=== PATIENT | female | born 1995 | race African-American/Black ===

== ENCOUNTER 2016-05-02 11:53 | Emergency (ER) | payer MEDICAID ==
[~2016-05-02] VITALS: Ht 160 cm; Wt 72.0 kg
[2016-05-02 11:55] VITALS: BP 161/94; PULSE 94; RESP 22; TEMP 97.6; O2SAT 95
[2016-05-02 12:17] VITALS: BP 143/93; PULSE 92; RESP 22; O2SAT 98
--- NOTE | 2016-05-02 12:37 | PD ---
HPI Chief Complaint: Abdominal Pain Time Seen by Provider: 12:34 Travel History International Travel<30 days: No Contact w/Intl Traveler<30days: No Traveled to known affect area: No History of Present Illness HPI Patient is a 20-year-old female who presents to the emergency for evaluation of nausea, vomiting, cough and shortness of breath. Patient states that symptoms started 3 days ago. She reports pleuritic chest pain with coughing, she reports her cough is productive. She denies any fever, diarrhea, sick contacts or contaminated foods. Patient is currently on her menstrual cycle. She further denies any dysuria. Patient reports abdominal pain in his epigastric and cramping in nature. She states her pain is a 10 out of 10. PFS Past Medical History Medical History: Denies Significant Hx ?: Not LMP: 04/2016 Past Surgical History Surgical History: No Previous Surgery Social History Alcohol Use: Yes (occasional) Tobacco Use: Yes (occasional) Substance Use: No Allergies-Medications (Allergen,Severity, Reaction): Coded Allergies: No Known Allergies (Unverified , 05/02/16) Reported Meds & Prescriptions Reported Meds & Active Scripts Active Zofran Odt (Ondansetron Odt) 4 Mg Tab 4 Mg SL Q6HR PRN Review of Systems Except as stated in HPI: all other systems reviewed are Neg General / Constitutional: No: Fever, Chills HENT: No: Headaches Cardiovascular: No: Chest Pain or Discomfort Respiratory: Positive: Cough, Shortness of Breath, Pleuritic Pain, No: Wheezing Gastrointestinal: Positive: Nausea, Vomiting, Abdominal Pain, Loss of Appetite Genitourinary: No: Dysuria Musculoskeletal: No: Myalgias Neurologic: No: Weakness, Dizziness, Syncope, Focal Abnormalities Physical Exam Narrative GENERAL: Well-developed, well-nourished, alert female. Actively dry heaving. SKIN: Warm and dry. HEAD: Atraumatic. Normocephalic. EYES: Pupils equal and round. No scleral icterus. No injection or drainage. ENT: No nasal bleeding or discharge. Mucous membranes pink and moist. NECK: Trachea midline. No JVD. CARDIOVASCULAR: Regular rate and rhythm. No murmur appreciated. RESPIRATORY: No accessory muscle use. Clear to auscultation. Diminished in bases GASTROINTESTINAL: Abdomen soft, tender to palpation epigastric region, no rebound, no guarding, nondistended. Hepatic and splenic margins not palpable. Positive bowel sounds. MUSCULOSKELETAL: No obvious deformities. No clubbing. No cyanosis. No edema. NEUROLOGICAL: Awake and alert. No obvious cranial nerve deficits. Motor grossly within normal limits. Normal speech. PSYCHIATRIC: Appropriate mood and affect; insight and judgment normal. Data Data Last Documented VS Vital Signs Date Time Temp Pulse Resp B/P Pulse Ox O2 Delivery O2 Flow Rate FiO2 05/02/16 15:41 77 130/85 100 Room Air 05/02/16 13:57 16 05/02/16 11:55 97.6 Orders Complete Blood Count With Diff (05/02/16 12:31) Comprehensive Metabolic Panel (05/02/16 12:31) Lipase (05/02/16 12:31) Lactic Acid (05/02/16 12:31) Urinalysis - C+S If Indicated (05/02/16 12:31) Abdomen, Kub Only (05/02/16 12:31) Chest, Single Ap (05/02/16 12:31) Ondansetron Inj (Zofran Inj) (05/02/16 12:45) Influenzae A/B Antigen (05/02/16 12:32) Magnesium (Mg) (05/02/16 13:13) Iv Access Insert/Monitor (05/02/16 13:50) Sodium Chlor 0.9% 1000 Ml Inj (Ns 1000 M (05/02/16 14:00) Prochlorperazine Inj (Compazine Inj) (05/02/16 14:00) Diphenhydramine Inj (Benadryl Inj) (05/02/16 14:00) Ed Urine Pregnancytest Poc (05/02/16 14:16) Ondansetron Inj (Zofran Inj) (05/02/16 15:45) Labs Laboratory Tests Test 05/02/16 05/02/16 13:13 13:24 White Blood Count 9.1 TH/MM3 Red Blood Count 4.77 MIL/MM3 Hemoglobin 13.2 GM/DL Hematocrit 38.9 % Mean Corpuscular Volume 81.7 FL Mean Corpuscular Hemoglobin 27.6 PG Mean Corpuscular Hemoglobin 33.8 % Concent Red Cell Distribution Width 13.2 % Platelet Count 338 TH/MM3 Mean Platelet Volume 7.5 FL Neutrophils (%) (Auto) 81.7 % Lymphocytes (%) (Auto) 10.7 % Monocytes (%) (Auto) 6.9 % Eosinophils (%) (Auto) 0.4 % Basophils (%) (Auto) 0.3 % Neutrophils # (Auto) 7.5 TH/MM3 Lymphocytes # (Auto) 1.0 TH/MM3 Monocytes # (Auto) 0.6 TH/MM3 Eosinophils # (Auto) 0.0 TH/MM3 Basophils # (Auto) 0.0 TH/MM3 CBC Comment DIFF FINAL Differential Comment Sodium Level 136 MEQ/L Potassium Level 4.1 MEQ/L Chloride Level 101 MEQ/L Carbon Dioxide Level 23.8 MEQ/L Anion Gap 11 MEQ/L Blood Urea Nitrogen 9 MG/DL Creatinine 0.86 MG/DL Estimat Glomerular Filtration 84 ML/MIN Rate Random Glucose 86 MG/DL Lactic Acid Level 1.0 mmol/L Calcium Level 8.7 MG/DL Magnesium Level 2.1 MG/DL Total Bilirubin 1.4 MG/DL Aspartate Amino Transf 23 U/L (AST/SGOT) Alanine Aminotransferase 23 U/L (ALT/SGPT) Alkaline Phosphatase 68 U/L Total Protein 7.3 GM/DL Albumin 4.3 GM/DL Lipase 203 U/L Urine Color YELLOW Urine Turbidity HAZY Urine pH 6.0 Urine Specific [place] 1.026 Urine Protein 30 mg/dL Urine Glucose (UA) NEG mg/dL Urine Ketones 150 mg/dL Urine Occult Blood LARGE Urine Nitrite NEG Urine Bilirubin NEG Urine Urobilinogen LESS THAN 2.0 MG/DL Urine Leukocyte Esterase TRACE Urine RBC 148 /hpf Urine WBC 5 /hpf Urine Squamous Epithelial 6 /hpf Cells Urine Transitional Epithelial <1 /hpf Cells Urine Mucus MOD /lpf Microscopic Urinalysis Comment CULT NOT INDICATED MDM Medical Decision Making Medical Screen Exam Complete: Yes Emergency Medical Condition: Yes Interpretation(s) Vital Signs Date Time Temp Pulse Resp B/P Pulse Ox O2 Delivery O2 Flow Rate FiO2 05/02/16 12:17 92 22 143/93 98 Room Air 05/02/16 11:55 97.6 94 22 161/94 95 Differential Diagnosis Gastroenteritis versus influenza versus pneumonia versus gastritis versus obstruction versus other Narrative Course Patient is a 20-year-old female presenting to the emergency department for evaluation of GI symptoms as well as a cough with shortness of breath. Labs and imaging ordered and pending. Workup initiated triage, care of patient will be transferred to a provider when a medical bed is available. Zofran IM ordered. Scripts Ondansetron Odt (Zofran Odt)4 Mg Tab4 Mg SL Q6HR PRN (Nausea/Vomiting) #15 TAB Ref 0 Prov:Pao Galvan 05/02/16 Guerita Chen May 02, 2016 12:37
[2016-05-02] MEDS ORDERED: ONDANSETRON HCL 4 MG/2 ML VIAL IM ONE (12:45)
--- NOTE | 2016-05-02 13:10 | RADRPT ---
EXAM DATE/TIME: 05/02/2016 12:59 [facility] COMPARISON: No previous studies available for comparison. INDICATIONS : Upper abdominal pain, nausea for 2 days MEDICAL HISTORY : None. SURGICAL HISTORY : None. ENCOUNTER: Initial ACUITY: 2 days PAIN SCORE: 10/10 LOCATION: Bilateral abdomen FINDINGS: Supine view of the abdomen was performed. The abdominal bowel gas pattern is normal. The osseous st ructures are unremarkable. Phleboliths are seen in the pelvis. CONCLUSION: No acute disease. Justin Ochoa MD on May 02, 2016 at 13:08 Board Certified Radiologist. This report was verified electronically.
--- NOTE | 2016-05-02 13:10 | RADRPT ---
EXAM DATE/TIME: 05/02/2016 12:57 [facility] COMPARISON: No previous studies available for comparison. INDICATIONS : Pain in middle of chest for 2 days, nausea, weakness MEDICAL HISTORY : None. SURGICAL HISTORY : None. ENCOUNTER: Initial ACUITY: 2 days PAIN SCORE: 10/10 LOCATION: Bilateral chest FINDINGS: A single view of the chest demonstrates the lungs to be symmetrically aerated without evidence of mas s, infiltrate or effusion. The cardiomediastinal contours are unremarkable. Osseous structures are intact. CONCLUSION: No acute disease. Justin Ochoa MD on May 02, 2016 at 13:08 Board Certified Radiologist. This report was verified electronically.
[2016-05-02 13:47] LABS: AUTOMATED NEUTROPHIL # 7.5 TH/MM3 (1.8-7.7); BASOPHIL % 0.3 % (0.0-2.0); EOSINOPHIL % 0.4 % (0.0-4.0); HEMATOCRIT 38.9 % (35.0-46.0); HEMO FLAGS DIFF FINAL; LYMPH % 10.7 % (9.0-44.0); MEAN CELL VOLUME 81.7 FL (80.0-100.0); MEAN CORPUSCULAR HEMOGLOBIN 27.6 PG (27.0-34.0); MEAN CORPUSCULAR HGB CONC 33.8 % (32.0-36.0); MONO % 6.9 % (0.0-8.0); NEUT % 81.7 % (16.0-70.0); PLATELET COUNT 338 TH/MM3 (150-450); RED BLOOD COUNT 4.77 MIL/MM3 (4.00-5.30); RED CELL DISTRIBUTION WIDTH 13.2 % (11.6-17.2); WHITE BLOOD COUNT 9.1 TH/MM3 (4.0-11.0)
[2016-05-02 13:52] LABS: BLOOD, URINE LARGE (NEG); GLUCOSE,URINE NEG (NEG); KETONE, URINE 150 mg/dL (NEG); MUCUS URINE MOD /lpf (OCC); NITRITE,URINE NEG (NEG); SQUAMOUS EPITHELIAL CELL URINE 6 /hpf (0-5); TRANSITIONAL EPI CELLS, URINE <1 /hpf; URINE COLOR YELLOW (YELLW/STRAW)
[2016-05-02 13:57] VITALS: BP 133/89; PULSE 68; RESP 16; O2SAT 100
[2016-05-02 13:57] LABS: COMMENT (UR) CULT NOT INDICATED; CULTURE IF INDICATED CULT NOT INDICATED
[2016-05-02] MEDS ORDERED: SODIUM CHLOR 0.9% 1000 ML INJ 1,000 ML IV ONE (14:00)
[2016-05-02] MEDS ORDERED: PROCHLORPERAZINE INJ 10 MG/2 ML VIAL IVS ONE (14:00)
[2016-05-02] MEDS ORDERED: diphenhydrAMINE HCL 50 MG/ML VIAL IV PUSH ONE (14:00)
[2016-05-02 14:04] LABS: ANION GAP 11 MEQ/L (5-15); AST (GOT) 23 U/L (16-38); BICARBONATE 23.8 MEQ/L (21.0-32.0); BLOOD UREA NITROGEN 9 MG/DL (7-18); CHLORIDE 101 MEQ/L (98-107); GLOMERULAR FILTRATION RATE 84 ML/MIN (>89); MAGNESIUM 2.1 MG/DL (1.5-2.5); POTASSIUM 4.1 MEQ/L (3.5-5.1); SODIUM (NA) 136 MEQ/L (136-145)
[2016-05-02 14:07] LABS: ALKALINE PHOSPHATASE 68 U/L (45-117); ALT (GPT) 23 U/L (9-42); TOTAL BILIRUBIN ADULT 1.4 MG/DL (0.2-1.0)
--- NOTE | 2016-05-02 15:09 | PD ---
Data Data Last Documented VS Vital Signs Date Time Temp Pulse Resp B/P Pulse Ox O2 Delivery O2 Flow Rate FiO2 05/02/16 13:57 68 16 133/89 100 Room Air 05/02/16 11:55 97.6 Orders Complete Blood Count With Diff (05/02/16 12:31) Comprehensive Metabolic Panel (05/02/16 12:31) Lipase (05/02/16 12:31) Lactic Acid (05/02/16 12:31) Urinalysis - C+S If Indicated (05/02/16 12:31) Abdomen, Kub Only (05/02/16 12:31) Chest, Single Ap (05/02/16 12:31) Ondansetron Inj (Zofran Inj) (05/02/16 12:45) Influenzae A/B Antigen (05/02/16 12:32) Magnesium (Mg) (05/02/16 13:13) Iv Access Insert/Monitor (05/02/16 13:50) Sodium Chlor 0.9% 1000 Ml Inj (Ns 1000 M (05/02/16 14:00) Prochlorperazine Inj (Compazine Inj) (05/02/16 14:00) Diphenhydramine Inj (Benadryl Inj) (05/02/16 14:00) Ed Urine Pregnancytest Poc (05/02/16 14:16) Labs Laboratory Tests Test 05/02/16 05/02/16 13:13 13:24 White Blood Count 9.1 TH/MM3 Red Blood Count 4.77 MIL/MM3 Hemoglobin 13.2 GM/DL Hematocrit 38.9 % Mean Corpuscular Volume 81.7 FL Mean Corpuscular Hemoglobin 27.6 PG Mean Corpuscular Hemoglobin 33.8 % Concent Red Cell Distribution Width 13.2 % Platelet Count 338 TH/MM3 Mean Platelet Volume 7.5 FL Neutrophils (%) (Auto) 81.7 % Lymphocytes (%) (Auto) 10.7 % Monocytes (%) (Auto) 6.9 % Eosinophils (%) (Auto) 0.4 % Basophils (%) (Auto) 0.3 % Neutrophils # (Auto) 7.5 TH/MM3 Lymphocytes # (Auto) 1.0 TH/MM3 Monocytes # (Auto) 0.6 TH/MM3 Eosinophils # (Auto) 0.0 TH/MM3 Basophils # (Auto) 0.0 TH/MM3 CBC Comment DIFF FINAL Differential Comment Sodium Level 136 MEQ/L Potassium Level 4.1 MEQ/L Chloride Level 101 MEQ/L Carbon Dioxide Level 23.8 MEQ/L Anion Gap 11 MEQ/L Blood Urea Nitrogen 9 MG/DL Creatinine 0.86 MG/DL Estimat Glomerular Filtration 84 ML/MIN Rate Random Glucose 86 MG/DL Lactic Acid Level 1.0 mmol/L Calcium Level 8.7 MG/DL Magnesium Level 2.1 MG/DL Total Bilirubin 1.4 MG/DL Aspartate Amino Transf 23 U/L (AST/SGOT) Alanine Aminotransferase 23 U/L (ALT/SGPT) Alkaline Phosphatase 68 U/L Total Protein 7.3 GM/DL Albumin 4.3 GM/DL Lipase 203 U/L Urine Color YELLOW Urine Turbidity HAZY Urine pH 6.0 Urine Specific [place] 1.026 Urine Protein 30 mg/dL Urine Glucose (UA) NEG mg/dL Urine Ketones 150 mg/dL Urine Occult Blood LARGE Urine Nitrite NEG Urine Bilirubin NEG Urine Urobilinogen LESS THAN 2.0 MG/DL Urine Leukocyte Esterase TRACE Urine RBC 148 /hpf Urine WBC 5 /hpf Urine Squamous Epithelial 6 /hpf Cells Urine Transitional Epithelial <1 /hpf Cells Urine Mucus MOD /lpf Microscopic Urinalysis Comment CULT NOT INDICATED MDM Supervised Visit with STALIN: Yes Narrative Course I, Dr. Ashby, have reviewed the advance practice practioner's documentation and am in agreement, met with the patient face to face, made the diagnosis, and the medical decision making was done by me. *My assessment and Findings: 40-year-old healthy female here with complaint of nausea, vomiting and mild epigastric abdominal discomfort that started 3 days ago, worsened today. Patient has had fairly intractable nausea and vomiting since being out in our triage area. Incidentally she also notes a mild amount of sharp pain when she vomits in the chest. No fevers or chills, recent travel. No associated diarrhea. Abdominal examination is benign with minimal epigastric tenderness to palpation. Differential includes gastritis, pancreatitis, hepatobiliary pathology, food poisoning, dehydration, electrolyte abnormality, and less likely peritoneal pathology given benign abdominal examination. Laboratory workup was unremarkable patient felt markedly improved after symptomatic therapy was able to tolerate oral challenge and will be discharged home. Scripts No Active Prescriptions or Reported Meds Marisa Ashby MD May 02, 2016 15:09
[2016-05-02] MEDS ORDERED: ZOFR4TAB3 SL (15:10)
--- NOTE | 2016-05-02 15:10 | PD ---
Physical Exam Time Seen by Provider: 15:09 Narrative 20 year-old female presents to emergency department for evaluation of nausea, vomiting, epigastric pain worsening over last 3 days. Patient states she is unable to keep anything down. Workup was initiated in triage. Patient is with vomiting and dry heaving here in the emergency department. She has been vomiting since out in triage. She was given IM Zofran out there without any relief of her symptoms. Patient is currently on her menstrual cycle. Data Data Last Documented VS Vital Signs Date Time Temp Pulse Resp B/P Pulse Ox O2 Delivery O2 Flow Rate FiO2 05/02/16 15:41 77 130/85 100 Room Air 05/02/16 13:57 16 05/02/16 11:55 97.6 Orders Complete Blood Count With Diff (05/02/16 12:31) Comprehensive Metabolic Panel (05/02/16 12:31) Lipase (05/02/16 12:31) Lactic Acid (05/02/16 12:31) Urinalysis - C+S If Indicated (05/02/16 12:31) Abdomen, Kub Only (05/02/16 12:31) Chest, Single Ap (05/02/16 12:31) Ondansetron Inj (Zofran Inj) (05/02/16 12:45) Influenzae A/B Antigen (05/02/16 12:32) Magnesium (Mg) (05/02/16 13:13) Iv Access Insert/Monitor (05/02/16 13:50) Sodium Chlor 0.9% 1000 Ml Inj (Ns 1000 M (05/02/16 14:00) Prochlorperazine Inj (Compazine Inj) (05/02/16 14:00) Diphenhydramine Inj (Benadryl Inj) (05/02/16 14:00) Ed Urine Pregnancytest Poc (05/02/16 14:16) Ondansetron Inj (Zofran Inj) (05/02/16 15:45) Labs Laboratory Tests Test 05/02/16 05/02/16 13:13 13:24 White Blood Count 9.1 TH/MM3 Red Blood Count 4.77 MIL/MM3 Hemoglobin 13.2 GM/DL Hematocrit 38.9 % Mean Corpuscular Volume 81.7 FL Mean Corpuscular Hemoglobin 27.6 PG Mean Corpuscular Hemoglobin 33.8 % Concent Red Cell Distribution Width 13.2 % Platelet Count 338 TH/MM3 Mean Platelet Volume 7.5 FL Neutrophils (%) (Auto) 81.7 % Lymphocytes (%) (Auto) 10.7 % Monocytes (%) (Auto) 6.9 % Eosinophils (%) (Auto) 0.4 % Basophils (%) (Auto) 0.3 % Neutrophils # (Auto) 7.5 TH/MM3 Lymphocytes # (Auto) 1.0 TH/MM3 Monocytes # (Auto) 0.6 TH/MM3 Eosinophils # (Auto) 0.0 TH/MM3 Basophils # (Auto) 0.0 TH/MM3 CBC Comment DIFF FINAL Differential Comment Sodium Level 136 MEQ/L Potassium Level 4.1 MEQ/L Chloride Level 101 MEQ/L Carbon Dioxide Level 23.8 MEQ/L Anion Gap 11 MEQ/L Blood Urea Nitrogen 9 MG/DL Creatinine 0.86 MG/DL Estimat Glomerular Filtration 84 ML/MIN Rate Random Glucose 86 MG/DL Lactic Acid Level 1.0 mmol/L Calcium Level 8.7 MG/DL Magnesium Level 2.1 MG/DL Total Bilirubin 1.4 MG/DL Aspartate Amino Transf 23 U/L (AST/SGOT) Alanine Aminotransferase 23 U/L (ALT/SGPT) Alkaline Phosphatase 68 U/L Total Protein 7.3 GM/DL Albumin 4.3 GM/DL Lipase 203 U/L Urine Color YELLOW Urine Turbidity HAZY Urine pH 6.0 Urine Specific [place] 1.026 Urine Protein 30 mg/dL Urine Glucose (UA) NEG mg/dL Urine Ketones 150 mg/dL Urine Occult Blood LARGE Urine Nitrite NEG Urine Bilirubin NEG Urine Urobilinogen LESS THAN 2.0 MG/DL Urine Leukocyte Esterase TRACE Urine RBC 148 /hpf Urine WBC 5 /hpf Urine Squamous Epithelial 6 /hpf Cells Urine Transitional Epithelial <1 /hpf Cells Urine Mucus MOD /lpf Microscopic Urinalysis Comment CULT NOT INDICATED MDM Medical Record Reviewed: Yes Supervised Visit with STALIN: No Differential Diagnosis Gastritis versus food poisoning versus influenza versus pancreatitis versus cholecystitis Narrative Course 20 year-old female presents to the emergency department for evaluation of nausea , vomiting, epigastric pain. Patient does have mild tenderness to palpation in the epigastrium. She is dry heaving and vomiting here in the emergency department. There is no hematemesis noted. IV access is obtained. Patient is given Compazine and IV fluids. CBC and CMP are without acute concern. Urinalysis is hazy with 30 proteinuria, 150 ketones, large occult blood, trace leukocyte esterase, 48 RBC, moderate mucus, culture not indicated. Patient is on her menstrual cycle. Patient is next noted to be restful, lying in the bed. By mouth challenges initiated and patient tolerates by mouth fluids. I discussed the patient my attending physician Dr. Ashby is also assessed the patient. She'll be discharged home at this time. Diagnosis Primary Impression: Gastritis Qualified Code: K29.00 - Acute gastritis without hemorrhage, unspecified gastritis type Additional Impression: Nausea & vomiting Qualified Code: R11.2 - Intractable vomiting with nausea, unspecified vomiting type Referrals: Director Hospice Operations Primary Care Physician Patient Instructions: Diet for Stomach Ulcers and Gastritis (ED), General Instructions Departure Forms: Tests/Procedures, Work Release Enter return to work date: May 04, 2016 Additional Instruction: Avoid acidic abrasive foods Liquid diet, just as tolerated Follow-up the primary care provider Return immediately with any acute worsening of symptoms Med/Other Pt SpecificInfo: Prescription(s) given Scripts Ondansetron Odt (Zofran Odt)4 Mg Tab4 Mg SL Q6HR PRN (Nausea/Vomiting) #15 TAB Ref 0 Prov:Pao Galvan 05/02/16 Disposition: 01 DISCHARGE HOME Condition: Stable Pao Galvan May 02, 2016 15:10
[2016-05-02 15:41] VITALS: BP 130/85; PULSE 77; O2SAT 100
[2016-05-02] MEDS ORDERED: ONDANSETRON HCL 4 MG/2 ML VIAL IV PUSH ONE (15:45)
== END 2016-05-02 16:09 | disposition home or self-care (01) ==
LOC: NEPE 11:53
DX: K29.70 Gastritis, unspecified, without bleeding (principal); R11.2 Nausea with vomiting, unspecified
CPT/HCPCS: 71010; 74000; 80053; 81001; 83605; 83690; 83735; 84703; 85025; 87804; J0780; J1200; J2405; J7030; 96361; 96372; 96374; 96375

== ENCOUNTER 2016-06-10 07:22 | Emergency (ER) | payer SELFPAY ==
[~2016-06-10] VITALS: Ht 152.4 cm; Wt 72.5 kg
[~2016-06-10 07:22] MED LIST: ZOFR4TAB3 SL
[2016-06-10 07:24] VITALS: BP 130/84; PULSE 80; RESP 20; TEMP 97.9; O2SAT 100
[2016-06-10 08:15] LABS: AUTOMATED NEUTROPHIL # 8.1 TH/MM3 (1.8-7.7); BASOPHIL % 0.2 % (0.0-2.0); EOSINOPHIL % 0.3 % (0.0-4.0); HEMATOCRIT 42.3 % (35.0-46.0); HEMO FLAGS DIFF FINAL; LYMPH % 12.7 % (9.0-44.0); LYMPHOCYTE # 1.3 TH/MM3 (1.0-4.8); MEAN CELL VOLUME 81.6 FL (80.0-100.0); MEAN CORPUSCULAR HEMOGLOBIN 26.8 PG (27.0-34.0); MEAN CORPUSCULAR HGB CONC 32.9 % (32.0-36.0); NEUT % 80.8 % (16.0-70.0); PLATELET COUNT 324 TH/MM3 (150-450); RED BLOOD COUNT 5.18 MIL/MM3 (4.00-5.30); RED CELL DISTRIBUTION WIDTH 13.5 % (11.6-17.2)
[2016-06-10 08:34] LABS: ALT (GPT) 29 U/L (9-42); ANION GAP 12 MEQ/L (5-15); AST (GOT) 14 U/L (16-38); BICARBONATE 25.5 MEQ/L (21.0-32.0); BLOOD UREA NITROGEN 17 MG/DL (7-18); CHLORIDE 103 MEQ/L (98-107); GLOMERULAR FILTRATION RATE 86 ML/MIN (>89); POTASSIUM 3.6 MEQ/L (3.5-5.1); SODIUM (NA) 140 MEQ/L (136-145)
[2016-06-10 08:36] LABS: ALKALINE PHOSPHATASE 74 U/L (45-117); TOTAL BILIRUBIN ADULT 1.1 MG/DL (0.2-1.0)
[2016-06-10 08:36] LABS: BACTERIA, URINE OCC /hpf; BLOOD, URINE MOD (NEG); COMMENT (UR) CULT NOT INDICATED; CULTURE IF INDICATED CULT NOT INDICATED; GLUCOSE,URINE NEG (NEG); KETONE, URINE 150 mg/dL (NEG); MUCUS URINE MANY /lpf (OCC); NITRITE,URINE NEG (NEG); SQUAMOUS EPITHELIAL CELL URINE 2 /hpf (0-5); URINE COLOR YELLOW (YELLW/STRAW)
[2016-06-10] MEDS ORDERED: SODIUM CHLOR 0.9% 1000 ML INJ 1,000 ML IV ONE (09:30)
[2016-06-10] MEDS ORDERED: ONDANSETRON HCL 4 MG/2 ML VIAL IV PUSH ONE ×2 (09:30→10:15)
[2016-06-10] MEDS ORDERED: ZOFR4TAB3 SL (09:54)
--- NOTE | 2016-06-10 09:54 | PD ---
HPI Chief Complaint: GI Complaint Time Seen by Provider: 09:17 Travel History International Travel<30 days: No Contact w/Intl Traveler<30days: No Traveled to known affect area: No History of Present Illness HPI 20-year-old female with no significant past medical issues, presents to the ER today for several days history of coughing, cold symptoms, nausea, vomiting, and epigastric abdominal pains. She states that the pain comes with vomiting, states the pain is currently 3 out of 10. She denies any fevers, diarrhea, or other symptoms. She does not know any sick contacts. Modifying Factors: None Associated Signs & Symptoms: Nausea, vomiting, cold symptoms, coughing Risk Factors: None PFSH Past Medical History Diminished Hearing: No Tetanus Vaccination: < 5 Years Influenza Vaccination: No ?: Not LMP: 06/10/16 Social History Alcohol Use: No Tobacco Use: No Substance Use: No Allergies-Medications (Allergen,Severity, Reaction): Coded Allergies: No Known Allergies (Unverified , 05/02/16) Reported Meds & Prescriptions Reported Meds & Active Scripts Active Zofran Odt (Ondansetron Odt) 4 Mg Tab 4 Mg SL Q6HR PRN Review of Systems Except as stated in HPI: all other systems reviewed are Neg Physical Exam Narrative GENERAL: Young -[place] female who is well-developed, awake, alert, oriented 3 and not in acute distress. SKIN: Focused skin assessment warm/dry. HEAD: Atraumatic. Normocephalic. EYES: Pupils equal and round. No scleral icterus. No injection or drainage. ENT: No nasal bleeding or discharge. Mucous membranes pink and moist. NECK: Trachea midline. No JVD. CARDIOVASCULAR: Regular rate and rhythm. No murmur appreciated. RESPIRATORY: No accessory muscle use. Clear to auscultation. Breath sounds equal bilaterally. GASTROINTESTINAL: Abdomen soft, non-tender, nondistended. Hepatic and splenic margins not palpable. MUSCULOSKELETAL: No obvious deformities. No clubbing. No cyanosis. No edema. NEUROLOGICAL: Awake and alert. No obvious cranial nerve deficits. Motor grossly within normal limits. Normal speech. PSYCHIATRIC: Appropriate mood and affect; insight and judgment normal. Data Data Last Documented VS Vital Signs Date Time Temp Pulse Resp B/P Pulse Ox O2 Delivery O2 Flow Rate FiO2 06/10/16 07:24 97.9 80 20 130/84 100 Room Air Orders Electrocardiogram (06/10/16 ) Complete Blood Count With Diff (06/10/16 07:27) Comprehensive Metabolic Panel (06/10/16 07:27) Urinalysis - C+S If Indicated (06/10/16 07:27) Lipase (06/10/16 07:27) Ed Urine Pregnancytest Poc (06/10/16 07:44) Influenzae A/B Antigen (06/10/16 09:17) Sodium Chlor 0.9% 1000 Ml Inj (Ns 1000 M (06/10/16 09:30) Ondansetron Inj (Zofran Inj) (06/10/16 09:30) Labs Laboratory Tests Test 06/10/16 06/10/16 07:35 07:40 White Blood Count 10.0 TH/MM3 Red Blood Count 5.18 MIL/MM3 Hemoglobin 13.9 GM/DL Hematocrit 42.3 % Mean Corpuscular Volume 81.6 FL Mean Corpuscular Hemoglobin 26.8 PG Mean Corpuscular Hemoglobin 32.9 % Concent Red Cell Distribution Width 13.5 % Platelet Count 324 TH/MM3 Mean Platelet Volume 7.7 FL Neutrophils (%) (Auto) 80.8 % Lymphocytes (%) (Auto) 12.7 % Monocytes (%) (Auto) 6.0 % Eosinophils (%) (Auto) 0.3 % Basophils (%) (Auto) 0.2 % Neutrophils # (Auto) 8.1 TH/MM3 Lymphocytes # (Auto) 1.3 TH/MM3 Monocytes # (Auto) 0.6 TH/MM3 Eosinophils # (Auto) 0.0 TH/MM3 Basophils # (Auto) 0.0 TH/MM3 CBC Comment DIFF FINAL Differential Comment Sodium Level 140 MEQ/L Potassium Level 3.6 MEQ/L Chloride Level 103 MEQ/L Carbon Dioxide Level 25.5 MEQ/L Anion Gap 12 MEQ/L Blood Urea Nitrogen 17 MG/DL Creatinine 1.00 MG/DL Estimat Glomerular Filtration 86 ML/MIN Rate Random Glucose 91 MG/DL Calcium Level 9.6 MG/DL Total Bilirubin 1.1 MG/DL Aspartate Amino Transf 14 U/L (AST/SGOT) Alanine Aminotransferase 29 U/L (ALT/SGPT) Alkaline Phosphatase 74 U/L Total Protein 8.0 GM/DL Albumin 4.5 GM/DL Lipase 107 U/L Urine Color YELLOW Urine Turbidity CLEAR Urine pH 6.0 Urine Specific [place] 1.027 Urine Protein 30 mg/dL Urine Glucose (UA) NEG mg/dL Urine Ketones 150 mg/dL Urine Occult Blood MOD Urine Nitrite NEG Urine Bilirubin NEG Urine Urobilinogen LESS THAN 2.0 MG/DL Urine Leukocyte Esterase NEG Urine RBC 13 /hpf Urine WBC 2 /hpf Urine Squamous Epithelial 2 /hpf Cells Urine Bacteria OCC /hpf Urine Mucus MANY /lpf Microscopic Urinalysis Comment CULT NOT INDICATED MDM Medical Decision Making Medical Screen Exam Complete: Yes Emergency Medical Condition: Yes Medical Record Reviewed: Yes Interpretation(s) Laboratory Tests Test 06/10/16 06/10/16 07:35 07:40 Mean Corpuscular Hemoglobin 26.8 PG (27.0-34.0) Neutrophils (%) (Auto) 80.8 % (16.0-70.0) Neutrophils # (Auto) 8.1 TH/MM3 (1.8-7.7) Estimat Glomerular Filtration 86 ML/MIN (>89) Rate Total Bilirubin 1.1 MG/DL (0.2-1.0) Aspartate Amino Transf 14 U/L (16-38) (AST/SGOT) Urine Protein 30 mg/dL (NEG-TRACE) Urine Ketones 150 mg/dL (NEG) Urine Occult Blood MOD (NEG) Urine RBC 13 /hpf (0-3) Urine Bacteria OCC /hpf (NONE) Urine Mucus MANY /lpf (OCC) Differential Diagnosis Nausea, vomiting, cough, cold symptoms, epigastric abdominal discomfort gastritis versus gastroenteritis versus viral syndrome versus pneumonia versus bronchitis versus influenza versus dehydration Narrative Course Abdomen is benign and I do not suspect an acute intra-abdominal process. She was given IV fluids and Zofran in the ER. She is not . Lab work did not indicate significant metabolic issues or significant dehydration at this time. Flu testing is negative. At this point, I suspect that she may have some underlying gastroenteritis or viral syndrome causing symptoms. My plan would be to release her with symptomatically relief or nausea and vomiting and have her follow-up with primary care physician. Return for any worsening in symptoms as needed. The plan has been discussed with her and she states understanding. Diagnosis Primary Impression: Nausea & vomiting Med/Other Pt SpecificInfo: Prescription(s) given Scripts Ondansetron Odt (Zofran Odt)4 Mg Tab4 Mg SL Q6HR PRN (Nausea/Vomiting) #7 TAB Ref 0 Prov:Monroe Enciso MD 06/10/16 Disposition: 01 DISCHARGE HOME Condition: Stable Monroe Enciso MD Jun 10, 2016 09:53
[2016-06-10] MEDS ORDERED: ZANT150T2 PO (09:58)
--- NOTE | 2016-06-10 13:18 | EKG ---
Date Performed: 06/10/2016 Time Performed: 07:32:14 PTAGE: 20 years EKG: Sinus rhythm NORMAL ECG NO PREVIOUS TRACING DOCTOR: Patrick Centeno Interpretating Date/Time 06/10/2016 13:16:31
== END 2016-06-10 10:28 | disposition home or self-care (01) ==
LOC: NEPE 07:22
DX: R11.2 Nausea with vomiting, unspecified (principal)
CPT/HCPCS: 80053; 81001; 83690; 84703; 85025; 87804; 93005; 96361; 96374; 96376; 99284; J2405; J7030

== ENCOUNTER 2016-07-02 14:46 | Emergency (ER) | payer MEDICAID ==
[~2016-07-02] VITALS: Ht 160 cm; Wt 72.5 kg
[~2016-07-02 14:46] MED LIST changes: +ZANT150T2 PO
[2016-07-02 14:47] VITALS: BP 119/89; PULSE 89; RESP 15; TEMP 98.2; O2SAT 99
[2016-07-02] MEDS ORDERED: ZANT150T2 PO (15:10)
[2016-07-02] MEDS ORDERED: BENT20TA PO (15:10)
[2016-07-02] MEDS ORDERED: ZOFR4TAB3 SL (15:10)
--- NOTE | 2016-07-02 15:10 | PD ---
HPI Chief Complaint: GI Complaint Time Seen by Provider: 14:51 Travel History International Travel<30 days: No Contact w/Intl Traveler<30days: No Traveled to known affect area: No History of Present Illness HPI So 20 year-old woman who presents to the emergency department complaining of epigastric pain and vomiting that started this morning. She has episodes of abdominal pain and vomiting that occurs every week or 2 and has since she was 15 or 16 years old. States she been seen multiple times this. No etiology has been identified. She otherwise has been feeling okay since she was seen last in the emergency department. She does smoke marijuana daily. She states she's taken for hot showers this morning alone as this is the only thing that seems to help with her symptoms. History Past Medical History Narrative Medical Recurrent abdominal pain with nausea vomiting Tetanus Vaccination: < 5 Years LMP: JUNE 2016 Past Surgical History Surgical History: No Previous Surgery Social History Alcohol Use: No Tobacco Use: No Allergies-Medications (Allergen,Severity, Reaction): Coded Allergies: No Known Allergies (Unverified , 05/02/16) Reported Meds & Prescriptions Reported Meds & Active Scripts Active Bentyl (Dicyclomine HCl) 20 Mg Tab 20 Mg PO QID PRN Zofran Odt (Ondansetron Odt) 4 Mg Tab 4 Mg SL Q8HR PRN May substitute non-ODT form. Zantac (Ranitidine HCl) 150 Mg Tab 150 Mg PO BID Zofran Odt (Ondansetron Odt) 4 Mg Tab 4 Mg SL Q6HR PRN Zofran Odt (Ondansetron Odt) 4 Mg Tab 4 Mg SL Q6HR PRN Review of Systems Except as stated in HPI: all other systems reviewed are Neg Physical Exam Narrative GENERAL: Well-appearing 20 year-old woman, uncomfortable but nontoxic. SKIN: Focused skin assessment warm/dry. NECK: Trachea midline. No JVD. CARDIOVASCULAR: Regular rate and rhythm. No murmur appreciated. RESPIRATORY: No accessory muscle use. Clear to auscultation. Breath sounds equal bilaterally. GASTROINTESTINAL: Abdomen is obese, soft. There is minimal epigastric tenderness. No right upper quadrant tenderness. Negative Carroll's. MUSCULOSKELETAL: No obvious deformities. No edema. NEUROLOGICAL: Awake and alert. No obvious cranial nerve deficits. Motor grossly within normal limits. Normal speech. PSYCHIATRIC: Appropriate mood and affect; insight and judgment normal. Data Data Last Documented VS Vital Signs Date Time Temp Pulse Resp B/P Pulse Ox O2 Delivery O2 Flow Rate FiO2 07/02/16 16:47 90 98 07/02/16 14:47 98.2 15 119/89 Orders Ondansetron Inj (Zofran Inj) (07/02/16 15:15) Sodium Chlor 0.9% 1000 Ml Inj (Ns 1000 M (07/02/16 15:15) Sodium Chlor 0.9% 1000 Ml Inj (Ns 1000 M (07/02/16 15:15) Dicyclomine (Bentyl) (07/02/16 15:15) Prochlorperazine Inj (Compazine Inj) (07/02/16 15:45) Diphenhydramine Inj (Benadryl Inj) (07/02/16 15:45) MDM Medical Decision Making Medical Screen Exam Complete: Yes Emergency Medical Condition: Yes Differential Diagnosis Cyclic vomiting, hepatobiliary disease, , marijuana hyperemesis syndrome, other Narrative Course Medical decision making This is a 20 year-old woman with recurrent nausea vomiting and epigastric abdominal pain every couple weeks. She looks uncomfortable. She is not toxic. She is benign exam. She still has her gallbladder but really does not any right upper quadrant tenderness. Labs were called later been unremarkable past. She thinks she's had ultrasounds of the gallbladder in the past. She smokes marijuana habitually. She lives at [facility]. She has cyclic nausea vomiting episodes with abdominal pain that her otherwise unexplained. During the patient likely has marijuana hyperemesis syndrome. I recommended marijuana abstinence, Zofran, rehydration, and supportive treatment. Diagnosis Primary Impression: Adverse effect of cannabis Qualified Code: T40.7X5A - Adverse effect of cannabis, initial encounter Additional Impression: Nausea & vomiting Qualified Code: G43.A0 - Non-intractable cyclical vomiting with nausea Additional Instructions: Avoid marijuana for one month to see if this resolves her symptoms. Take ranitidine as prescribed. Use Zofran if needed for nausea or vomiting. Use Bentyl if needed for abdominal pain. Follow-up with a primary physician in the next 2-4 days. Med/Other Pt SpecificInfo: Prescription(s) given Scripts Dicyclomine (Bentyl)20 Mg Tab20 Mg PO QID PRN (ABDOMINAL CRAMPING) #20 TAB Prov:Camacho Gomez MD 07/02/16 Ondansetron Odt (Zofran Odt)4 Mg Tab4 Mg SL Q8HR PRN (Nausea/Vomiting) #15 TAB May substitute non-ODT form. Prov:Camacho Gomez MD 07/02/16 Ranitidine (Zantac)150 Mg [id number] Mg PO BID #14 TAB Ref 0 Prov:Camacho Gomez MD 07/02/16 Disposition: 01 DISCHARGE HOME Condition: Stable Camacho Gomez MD July 02, 2016 15:10
[2016-07-02] MEDS ORDERED: SODIUM CHLOR 0.9% 1000 ML INJ 1,000 ML IV ONE ×2 (15:15)
[2016-07-02] MEDS ORDERED: DICYCLOMINE HCL 10 MG CAP PO ONE (15:15)
[2016-07-02] MEDS ORDERED: ONDANSETRON HCL 4 MG/2 ML VIAL IV ONE (15:15)
[2016-07-02] MEDS ORDERED: PROCHLORPERAZINE INJ 10 MG/2 ML VIAL IV PUSH ONE (15:45)
[2016-07-02] MEDS ORDERED: diphenhydrAMINE HCL 50 MG/ML VIAL IV PUSH ONE (15:45)
== END 2016-07-02 16:52 | disposition home or self-care (01) ==
LOC: NEPD 14:46
DX: G43.A0 Cyclical vomiting, in migraine, not intractable (principal); T40.7X5A Adverse effect of cannabis (derivatives), initial encounter
CPT/HCPCS: 96361; 96374; 96375; 99283; J0780; J1200; J2405; J7030

== ENCOUNTER 2016-09-12 14:59 | Emergency (ER) | payer SELFPAY ==
[~2016-09-12 14:59] MED LIST changes: +BENT20TA PO
[2016-09-12 15:01] VITALS: BP 145/87; PULSE 95; RESP 17; TEMP 98.2; O2SAT 100
== END 2016-09-12 15:34 | disposition left against medical advice (07) ==
LOC: NETRI 14:59
DX: R10.9 Unspecified abdominal pain (principal); Z53.21 Procedure and treatment not carried out due to patient leaving prior to being seen by health care provider
CPT/HCPCS: 99281